=== PATIENT | female | born 1995 | race Two or more races ===

== ENCOUNTER → 2023-11-12 | Emergency (ER) | payer OTHER ==
[~2023-11-12] VITALS: Ht 160 cm; Wt 62.6 kg
[~2023-11-12] MED LIST: ELVITEG/COB/EMTRI/TENOFO DISOP 1 UDTAB TABLET PO STA
== END | disposition home or self-care (01) ==
LOC: ER 13:37
DX: S69.82XA Other specified injuries of left wrist, hand and finger(s), initial encounter (principal); W46.1XXA Contact with contaminated hypodermic needle, initial encounter; Y93.89 Activity, other specified; Y92.238 Other place in hospital as the place of occurrence of the external cause; Y99.9 Unspecified external cause status; Z87.09 Personal history of other diseases of the respiratory system

== ENCOUNTER 2024-02-15 03:07 | Emergency (ER) | payer OTHER ==
[~2024-02-15] VITALS: Ht 160 cm; Wt 61.7 kg
[2024-02-15] MEDS ORDERED: FOLIC ACID0.8 M1 (03:15)
[2024-02-15] MEDS ORDERED: ZOFRAN8 MG (03:15)
[2024-02-15] MEDS ORDERED: PEPCID AC20 MG PO (03:15)
[2024-02-15] MEDS ORDERED: 0.9 % SODIUM CHLORIDE 500 ML IV STA (04:56)
[2024-02-15] MEDS ORDERED: METOCLOPRAMIDE HCL 5 MG/ML VIAL IM STA (04:56)
[2024-02-15] MEDS ORDERED: FAMOtidine 10 MG/ML (4ML VIAL) IV PUSH STA (04:57)
[2024-02-15] MEDS ORDERED: ONDANSETRON HCL 2 MG/ML VIAL IV STA (04:57)
[2024-02-15] MEDS ORDERED: HYOSCYAMINE SULFATE 0.125 MG TAB.SUBL SL ONE (07:00)
== END 2024-02-15 07:56 | disposition home or self-care (01) ==
LOC: ER 03:09
DX: O99.611 Diseases of the digestive system complicating pregnancy, first trimester (principal); K31.89 Other diseases of stomach and duodenum; K29.70 Gastritis, unspecified, without bleeding; K30 Functional dyspepsia; Z3A.01 Less than 8 weeks gestation of pregnancy

== ENCOUNTER 2024-04-09 14:34 | Emergency (ER) | payer OTHER ==
[~2024-04-09] VITALS: Ht 160 cm; Wt 63.5 kg
[~2024-04-09 14:34] MED LIST changes: -ELVITEG/COB/EMTRI/TENOFO DISOP 1 UDTAB TABLET PO STA; +FOLIC ACID0.8 M1; +PEPCID AC20 MG PO; +ZOFRAN8 MG
[2024-04-09 15:22] VITALS: BP 113/71; O2SAT 99
[2024-04-09 15:55] LABS: HEMATOCRIT 31.7 % (36.0-45.00); HEMOGLOBIN 10.7 g/dL (12.0-15.00); MEAN CORPUSCULAR HEMOGLOBIN 30.6 pg (27.00-32.0); PLATELET COUNT 299 K/uL (150-450); RED BLOOD COUNT 3.52 M/uL (4.00-6.00); RED CELL DISTRIBUTION WIDTH 13.4 % (11.5-14.5)
[2024-04-09 17:37] LABS: URINE APPEARANCE Clear; URINE BILIRRUBIN Negative (NEGATIVE); URINE BLOOD Negative; URINE COLOR Yellow; URINE KETONE Negative (NEGATIVE); URINE LEUKOCYTE Negative; URINE NITRATE Negative; URINE PROTEIN Negative (NEGATIVE); URINE UROBILINOGEN 0.2 E.U./dl
[2024-04-09 17:38] LABS: URINE EPITHELIAL CELLS 9.1 uL (0.0-38.8); URINE RBC 3.6 uL (0.0-20.8); URINE WBC 16.9 uL (0.0-23.2)
[2024-04-09 17:47] LABS: URINE GLUCOSE 500 MG/DL (NEGATIVE)
== END 2024-04-09 18:47 | disposition home or self-care (01) ==
LOC: ER 14:37
PROVIDERS: Emergency Medicine
DX: O26.892 Other specified pregnancy related conditions, second trimester (principal); Z3A.16 16 weeks gestation of pregnancy; R10.12 Left upper quadrant pain; Z91.040 Latex allergy status